=== PATIENT | female | born 1965 | race Hispanic/Latino ===

== ENCOUNTER → 2018-07-23 | Outpatient (CLI) | payer OTHER ==
--- NOTE | 2018-08-06 03:49 | Polysomnography ---
SPLIT-NIGHT POLYSOMNOGRAM REFERRING PHYSICIAN: Dr. Keegan Dougherty. HISTORY: This is a 53-year-old female with snoring and excessive daytime fatigue. She has past medical history of hypertension. CURRENT MEDICATIONS: Atenolol and lisinopril. Friendship Sleepiness Scale score is 24. Body mass index is 47.9. The patient presents for a diagnostic polysomnogram that is split into a titration polysomnography. FINDINGS: Polysomnogram revealed total sleep time of 144.5 minutes with sleep efficiency of 94.1% during diagnostic half of this study. Sleep onset latency was achieved in 1 minute and REM latency 144 minutes. The patient had intermittent snoring noted. During diagnostic half of the study, a total of 243 obstructive apneas, 1 mixed apnea, 31 central apneas, and 8 hypopneas were noted for an apnea-hypopnea index of 117.5 events per hour. Events were noted on supine and side position. During this half of study, the lowest oxygen saturation was 49%. Patient had 109.4 minutes with total sleep time below 90% during this half of the study. This study was split soon after discovering severe obstructive sleep apnea-hypopnea syndrome. CPAP was initiated at 4 cm of water pressure and incrementally increased to 13 cm of water. Due to onset of some central apnea events, BiPAP was initiated. BiPAP was initiated at 13/8cm of water and incrementally increased to 19/14 cm water pressure delivered using a [employer] AirFit for Her nasal pillows size medium, and heated humidifier. Sleep apnea was optimally corrected at BiPAP 19 cm and EPAP 14 cm of water where the apnea-hypopnea index was 19.3 events per hour and the lowest oxygen saturation was 89%. Of note, at 16/11 cm of pressure, REM sleep was studied in supine position with a few remnants hypopneas. However, there was good EEG consolidation without significant disruption and saturations remained high in the 90s percentile range. A significant amount of REM rebound was noted during this night. There were periodic limb movements in sleep though noted throughout diagnostic and treatment phases of study, but many of these limb movements were difficult to distinguish from respiratory event related limb movements. These periodic limb movements were of low amplitude during the CPAP titration and they did not cause clinical EEG arousals. Single-lead EKG analysis was unremarkable for this study. INTERPRETATION: This was an abnormal polysomnogram/split study due to the presence of: 1. Severe obstructive sleep apnea. This is supported by oxygen desaturations, snoring, and increased apnea-hypopnea index. Multiple factors can be contributory such as obesity, thyroid disease, and structural/obstructive abnormalities in the upper airway. An evaluation and management of these factors associated with sleep apnea would be beneficial. 2. Positive airway pressure titration. There was significant improvement in terms of alleviation of obstructive sleep apnea as optimal BiPAP pressure of 19 cm of BiPAP and 14 cm of EPAP delivered using a [employer] AirFit for Her nasal pillow mask size medium, and heated humidifier. Same settings are recommended for use during sleep. 3. Significant hypersomnolence: Patient reported an Friendship Sleepiness Scale Score of 24, which suggests severe somnolence and this sleep study demonstrated severe obstructive sleep apnea that may explain these findings. It is recommend to provide longitudinal followup on treatment to ensure appropriate response and improvement of this sleepiness. Patient should not drive or operative heavy machinery if sleepy. If the patient remains with residual symptoms, consideration for second night sleep study for positive airway pressure titration may be considered given the remnant events seen on this night with the optimum pressures that were studied. 4. Periodic limb movements in sleep. Periodic limb movements were noted of very low amplitude, but many of these may have been difficult to distinguish from respiratory event related limb movements. PLMS can be seen during positive airway pressure titration and may subsided after compliant use of positive airway pressure (PLMS disorder) can be associated secondary to condition such as restless leg syndrome, iron deficiency anemia, electrolyte imbalance such as hypomagnesemia, peripheral neuropathy, and use of certain medications. This was associated with clinical disturbance or complaint of daytime fatigue after optimization of positive airway pressure therapy, further evaluation and management of these factors may be helpful. MD ALEXANDER Sequeira Certified in Sleep Medicine Job#: [id number] SATURNINO COLVIN
== END ==
LOC: SLEEP 19:19
PROVIDERS: ATTEND Family Medicine
DX: R53.83 Other fatigue (principal); R06.83 Snoring
CPT/HCPCS: 95811

== ENCOUNTER → 2024-08-03 | Outpatient (REF) | payer OTHER | LOC: US 12:14 | PROVIDERS: ATTEND Nurse Practitioner Family | DX: E04.2 Nontoxic multinodular goiter (principal) | CPT/HCPCS: 76536 ==

== ENCOUNTER → 2024-08-30 | Outpatient (REF) | payer OTHER | LOC: US 12:19 | PROVIDERS: ATTEND Nurse Practitioner Family | DX: E04.2 Nontoxic multinodular goiter (principal) | CPT/HCPCS: 10005; 88172; 88173; 88305 ==

== ENCOUNTER 2025-02-25 11:43 | Emergency (ER) | payer OTHER ==
[~2025-02-25] VITALS: Ht 157.5 cm; Wt 105.2 kg
[2025-02-25 12:15] VITALS: PULSE 77; RESP 16
[2025-02-25 12:20] VITALS: TEMP 98.6; O2SAT 100
[2025-02-25] MEDS: KETOROLAC TROMETHAMINE 30 MG/ML VIAL IM STA ×2 (12:30→12:48)
[2025-02-25] MEDS: HYDROCODONE/APAP 5MG-325MG TAB PO ONE (12:52)
== END 2025-02-25 14:12 | disposition home or self-care (01) ==
LOC: ER 12:11
DX: R07.89 Other chest pain (principal); I10 Essential (primary) hypertension; E11.9 Type 2 diabetes mellitus without complications; E78.5 Hyperlipidemia, unspecified; K21.9 Gastro-esophageal reflux disease without esophagitis; F32.A Depression, unspecified
CPT/HCPCS: 71101; 99283; J1885